=== PATIENT | female | born 1975 | race Caucasian/White ===

== ENCOUNTER 2019-03-20 15:56 | Emergency (ER) | payer MEDICAID ==
[~2019-03-20] VITALS: Ht 160 cm; Wt 100.0 kg
[2019-03-20 16:38] LABS: BASOPHILS # (AUTO) 0.07 x10^3/uL (0-0.1); BASOPHILS % (AUTO) 1 % (0-1); EOSINOPHILS # (AUTO) 0.01 x10^3/uL (0-0.4); EOSINOPHILS % (AUTO) 0 % (1-7); LYMPHOCYTES % (AUTO) 15 % (22-44); MD NO; MEAN CORPUSCULAR HEMOGLOBIN 30.2 pg (27.0-34.8); MEAN CORPUSCULAR HGB CONC 34.2 g/dL (32.4-35.8); MEAN CORPUSCULAR VOLUME 88.5 fL (80-100); MEAN PLATELET VOLUME 8.1 fL (7.4-10.4); MONOCYTES # (AUTO) 0.34 x10^3/uL (0.2-0.8); MONOCYTES % (AUTO) 3 % (2-9); NEUTROPHILS # (AUTO) 8.31 x10^3/uL (1.8-6.8); NEUTROPHILS % (AUTO) 81 % (42-75); PLATELET COUNT 349 x10^3/uL (130-400); RED CELL DISTRIBUTION WIDTH 13.9 % (9.6-15.2)
[2019-03-20] MEDS ORDERED: PLEASE ENTER ALLERGIES MC SCH (16:45)
[2019-03-20 16:47] LABS: ALANINE AMINOTRANSFERASE 25 U/L (12-78); ALBUMIN 4.2 g/dL (3.4-5.0); ANION GAP 12 mmol/L (5-15); CALCIUM 9.6 mg/dL (8.5-10.1); CHLORIDE 108 mmol/L (98-107); CREATININE 0.93 mg/dL (0.55-1.02)
[2019-03-20 16:50] LABS: ALKALINE PHOSPHATASE 99 U/L (45-117); BILIRUBIN,TOTAL 0.7 mg/dL (0.2-1.0); TOTAL PROTEIN 8.6 g/dL (6.4-8.2)
[2019-03-20] MEDS ORDERED: DICYCLOMINE 10 MG/ML, 2ML ONE (16:59)
[2019-03-20] MEDS ORDERED: DICYCLOMINE 10 MG/ML, 2ML IM ONE (17:00)
[2019-03-20] MEDS ORDERED: SODIUM CHLORIDE 0.9% 1,000ML IVBOLUS ONE (17:30)
--- NOTE | 2019-03-20 17:51 | NUR ---
ua walked to lab, pt attempting to provided stool sampl at this time
[2019-03-20 18:00] VITALS: BP 143/96
[2019-03-20 18:12] LABS: MICROSCOPIC INDICATED
[2019-03-20 18:14] LABS: CULTURE INDICATED? YES
--- NOTE | 2019-03-20 18:33 | NUR ---
stool sample walked to lab, ptt reporting increased abd pain,MD notified. Pt given water for po challenge.
[2019-03-20] MEDS ORDERED: KETOROLAC 30 MG/1 ML IVPush ONE (19:00)
--- NOTE | 2019-03-20 19:09 | NUR ---
bs report of pt from kristen quinonez and assuming care of pt at this time.
[2019-03-20] MEDS ORDERED: KETOROLAC 30 MG/1 ML ONE (19:12)
--- NOTE | 2019-03-20 19:24 | NUR ---
pt medicated per mar for pain.
[2019-03-20 19:29] LABS: CLOSTRIDIUM DIFFICILE ANTIGEN NEGATIVE; CLOSTRIDIUM DIFFICILE TOXIN NEGATIVE (Negative)
[2019-03-20] MEDS ORDERED: LOPERAMIDE 2 MG CAPSULE ONE (20:25)
[2019-03-20] MEDS ORDERED: LOPERAMIDE 1 MG/5 ML, 10ML UDC PO ONE (20:30)
--- NOTE | 2019-03-20 20:31 | NUR ---
PT MEDICATED PER MAR.
--- NOTE | 2019-03-20 21:25 | NUR ---
attempt to discharge pt at this time. pt on commode at this. requests rn to return later.
== END 2019-03-20 21:54 | disposition home or self-care (01) ==
LOC: ED 19:52
DX: R11.2 Nausea with vomiting, unspecified (principal); E86.0 Dehydration; R19.7 Diarrhea, unspecified; E86.9 Volume depletion, unspecified
CPT/HCPCS: 36415; 74022; 80053; 81001; 83690; 85025; 87086; 87324; 89055; 96361; 96372; 96374; 99284; J0500; J1885; J7030; 87077

== ENCOUNTER 2020-10-30 19:57 | Emergency (ER) | payer MEDICAID ==
[~2020-10-30] VITALS: Ht 160 cm; Wt 120.3 kg
[2020-10-30 20:47] LABS: BASOPHILS % (AUTO) 1 % (0-1); EOSINOPHILS % (AUTO) 2 % (1-7); LYMPHOCYTES % (AUTO) 22 % (22-44); MEAN CORPUSCULAR HEMOGLOBIN 30.7 pg (27.0-34.8); MEAN CORPUSCULAR HGB CONC 34.6 g/dL (32.4-35.8); MEAN PLATELET VOLUME 8.2 fL (7.4-10.4); MONOCYTES % (AUTO) 6 % (2-9); NEUTROPHILS % (AUTO) 69 % (42-75); PLATELET COUNT 272 x10^3/uL (130-400); RED BLOOD COUNT 4.62 x10^6/uL (3.82-5.3); RED CELL DISTRIBUTION WIDTH 14.4 % (9.6-15.2)
[2020-10-30 20:52] LABS: ALBUMIN 3.7 g/dL (3.4-5.0); ANION GAP 5 mmol/L (5-15); CALCIUM 8.9 mg/dL (8.5-10.1); CHLORIDE 110 mmol/L (98-107)
[2020-10-30 20:59] LABS: TROPONIN I < 0.015 ng/mL (0.000-0.045)
[2020-10-30 21:09] LABS: MD NO
[2020-10-30] MEDS ORDERED: BUPR300T49 PO (22:46)
[2020-10-30] MEDS ORDERED: BUSP5TAB2 PO (22:46)
[2020-10-30] MEDS ORDERED: CITA20TA9 PO (22:46)
[2020-10-30] MEDS ORDERED: LURA40TA PO (22:46)
[2020-10-30] MEDS ORDERED: CLON2TAB PO (22:46)
--- NOTE | 2020-10-30 22:47 | NUR ---
task rn: pt came into ed for sob. pt states "I feel like i cant breathe deeply". pt resting on gur[place], nad, states she is coughing constantly, dry and non productive. pt denies additional questions or needs at this time. bed in lowest, call light on lap, wctm.
[2020-10-31 00:41] VITALS: BP 149/83
== END 2020-10-31 00:43 | disposition home or self-care (01) ==
LOC: ED 23:08
DX: J20.8 Acute bronchitis due to other specified organisms (principal); Z20.828 Contact with and (suspected) exposure to other viral communicable diseases; R06.02 Shortness of breath; M79.10 Myalgia, unspecified site; R06.00 Dyspnea, unspecified; R05 Cough; R07.89 Other chest pain; Z90.710 Acquired absence of both cervix and uterus
CPT/HCPCS: 71045; 80048; 82040; 84484; 85025; 87635; 93005; 99285